=== PATIENT | male | born 1955 | race Caucasian/White ===

== ENCOUNTER 2017-02-03 13:28 | Emergency (ER) | payer MEDICARE, OTHER ==
[~2017-02-03] VITALS: Wt 68.0 kg
[~2017-02-03 13:28] MED LIST: ADVAIR 250/501 EA INH; ADVAIR HFA 115/1 AER INH; AMBIEN10 M1 PO; AMBIEN10 MG; AMBIEN10 MG PO; AMBIEN5 MG PO; AMOXICILLIN500 M2 PO; AMOXIL500 MG PO; ARGIMENT POWDE1 EACH PO; B-12500 MCG PO; BACLOFEN20 M1 PO; BACLOFEN20 MG PO; BACTRIM DS 8001 TA1 PO; BACTROBAN CREAM15 GM; CEFADROXIL MON500 MG PO; CEFEPIME1 GM IJ; CELEXA20 MG PO; CELEXA40 MG PO; CEPHULAC10 GM/151 PO; CIPRO500 MG PO; CIPROFLOXACIN500 MG PO; COMBIVENT RESPIM4 GM INH; COMBIVENT1 AR1 IH; COMBIVENT1 ARO IH; DULCOLAX5 MG PO; DUONEB 3 MG/3 ML3 M1 NEB; FLONASE 0.05% 121 EA NAS; FLONASE0.05 MG/AC NAS; FLONASE0.05 MG/AC NS; FLORASTOR250 MG PO; FLOVENT HFA10.6 GM IH; FLOVENT0.044 MG/A IH; FLOVENT0.044 MG/A INH; FLUDROCORTISON0.1 MG PO; FOLIC ACID1 MG PO; Flovent 220 M220 MCG; HIPREX1 GM PO; HYDROCODONE BIT1 T11 PO; INVANZ1 GM/50 ML IV; IPRATROPIUM BR2.5 ML IH; KEFZOL1 GM IV; KLONOPIN0.5 MG PO; LOMOCOT 0.025 M1 TAB PO; LOMOTIL 0.025 M1 TA1 PO; LORTAB; LORTAB PO; MACROBID100 M1 PO; MEROPENEM1 G1 IV; METHENAMINE HIPP1 G1 PO; MOM30 M1 PO; NITROSTAT0.15 MG SL; NORVASC10 MG; Nicotrol 10MG I1 BOX INH; ORAZINC 220220 MG PO; PLAVIX75 MG PO; PRAVACHOL40 MG PO; PROAIR HFA0.09 MG/AC IH; PROAIR HFA0.09 MG/AC INH; SANTYL250 U/GM TP; TYLENOL325 M1 PO; VANCOMYCIN IV; VENTOLIN0.09 MG/AC IH; VENTOLIN0.09 MG/AC INH; VICO75300 PO; VICODIN 5/500 505 MG PO; VICODIN ES 7501 TA1 PO; VITAMIN D2400 UNIT PO; XANAX0.25 MG PO; ZINC SULFATE220 MG PO; Zofran4 MG IV; [UNRECOGNIZED DRUG - OTHER] IH; [UNRECOGNIZED DRUG - OTHER] PO; [UNRECOGNIZED DRUG - OTHER] PO
[2017-02-03 13:47] VITALS: BP 102/64
[2017-02-03 13:54] LABS: BILIRUBIN NEGATIVE (NEGATIVE); CLARITY CLOUDY (CLEAR); COLOR YELLOW (YELLOW); GLUCOSE NEGATIVE (NEGATIVE); KETONE NEGATIVE (NEGATIVE)
[2017-02-03 13:55] LABS: BLOOD 3+ (NEGATIVE); LEUKO ESTERASE 2+ (NEGATIVE); NITRITE POSITIVE (NEGATIVE); PH 6.5 (5.0-9.0); PROTEIN 2+ (NEGATIVE); UROBILINOGEN 0.2 E.U./dl (0.2-1.0)
[2017-02-03 14:13] LABS: BASO % 0.3 % (0.0-1.0); EOS # 0.1 10*3/uL (0.0-0.4); HEMATOCRIT 43.1 % (42.0-52.0); HEMOGLOBIN 14.1 g/dl (14.0-18.0); LYMPH # 1.5 10*3/uL (1.3-4.4); LYMPH % 24.7 % (27.0-41.0); MEAN CELL VOLUME 91.3 fl (80.0-94.0); MEAN CORPUSCULAR HGB 29.9 pg (27.0-31.0); MEAN CORPUSCULAR HGB CONC 32.7 g/dl (33.0-37.0); MEAN PLATELET VOLUME 11.6 fl (9.6-12.3); MONO # 0.4 10*3/uL (0.1-1.0); MONO % 6.3 % (3.0-9.0); NEUT # 3.9 10*3/uL (2.3-7.9); NEUT % 66.5 % (47.0-73.0); PLATELET COUNT AUTOMATED 127 10*3/uL (130-400); RED BLOOD COUNT 4.72 10*6/uL (4.50-5.90); RED CELL DISTRI WIDTH 15.5 % (0-14.5); WHITE BLOOD COUNT 5.9 10*3/uL (4.8-10.8)
[2017-02-03 14:17] LABS: BACTERIA 4+; URINE REFLEX COMMENT YES (NO); WBC TNTC wbc/hpf (0-5)
[2017-02-03 14:18] LABS: MUCOUS TRACE
[2017-02-03 14:30] LABS: ALBUMIN 3.7 gm/dl (3.1-4.5); BUN 24 mg/dl (7-24); CARBON DIOXIDE 25 mmol/L (21-32); CHLORIDE 111 mmol/L (98-107); EST GLOM FILT AFRICAN AMERICAN > 60 ml/min; GLUCOSE 112 mg/dL (65-99); POTASSIUM 4.1 mmol/L (3.5-5.1); SGOT/AST 20 IU/L (3-35); SGPT/ALT 16 U/L (12-78); SODIUM 143 mmol/L (136-145)
[2017-02-03 14:31] LABS: ALKALINE PHOSPHATASE 88 U/L (45-117); BILIRUBIN, TOTAL 0.5 mg/dl (0.2-1.0); TOTAL PROTEIN 7.8 gm/dL (6.4-8.2)
[2017-02-03] MEDS ORDERED: BACTRIM DS 8001 TA1 PO (14:37)
== END 2017-02-03 15:17 | disposition home or self-care (01) ==
LOC: ED 13:28
PROVIDERS: Student in an Organized Health Care Education/Training Program
DX: N39.0 Urinary tract infection, site not specified (principal); R41.82 Altered mental status, unspecified; I10 Essential (primary) hypertension; E78.5 Hyperlipidemia, unspecified; J44.9 Chronic obstructive pulmonary disease, unspecified; F17.200 Nicotine dependence, unspecified, uncomplicated; Z79.899 Other long term (current) drug therapy; Z88.1 Allergy status to other antibiotic agents

== ENCOUNTER 2017-08-31 13:15 | Emergency (ER) | payer MEDICARE, OTHER ==
[~2017-08-31] VITALS: Wt 72.6 kg
[2017-08-31 13:29] VITALS: BP 122/73
[2017-08-31 14:07] LABS: BASO % 0.1 % (0.0-1.0); HEMATOCRIT 40.1 % (42.0-52.0); LYMPH % 11.3 % (27.0-41.0); MEAN CELL VOLUME 94.8 fl (80.0-94.0); MEAN CORPUSCULAR HGB 30.7 pg (27.0-31.0); MEAN CORPUSCULAR HGB CONC 32.4 g/dl (33.0-37.0); MEAN PLATELET VOLUME 11.5 fl (9.6-12.3); MONO # 0.4 10*3/uL (0.1-1.0); MONO % 4.5 % (3.0-9.0); NEUT # 7.4 10*3/uL (2.3-7.9); PLATELET COUNT AUTOMATED 158 10*3/uL (130-400); RED BLOOD COUNT 4.23 10*6/uL (4.50-5.90); RED CELL DISTRI WIDTH 14.7 % (0-14.5); WHITE BLOOD COUNT 8.9 10*3/uL (4.8-10.8)
[2017-08-31 14:25] LABS: ALBUMIN 3.5 gm/dl (3.1-4.5); BUN 19 mg/dl (7-24); CHLORIDE 104 mmol/L (98-107); CREATININE 0.74 mg/dL (0.70-1.30); POTASSIUM 4.6 mmol/L (3.5-5.1); SGOT/AST 10 IU/L (3-35); SGPT/ALT 19 U/L (12-78); SODIUM 138 mmol/L (136-145); TOTAL PROTEIN 7.7 gm/dL (6.4-8.2)
[2017-08-31 14:28] LABS: BILIRUBIN NEGATIVE (NEGATIVE); BLOOD TRACE-INTACT (NEGATIVE); CLARITY SL CLOUDY (CLEAR); COLOR YELLOW (YELLOW); GLUCOSE NEGATIVE (NEGATIVE); KETONE NEGATIVE (NEGATIVE); LEUKO ESTERASE 2+ (NEGATIVE); NITRITE POSITIVE (NEGATIVE); UROBILINOGEN 0.2 E.U./dl (0.2-1.0)
[2017-08-31 14:28] LABS: ALKALINE PHOSPHATASE 90 U/L (45-117)
[2017-08-31 14:33] LABS: ETHYL ALCOHOL < 3.0 mg/dl (<3); TROPONIN I < 0.015 ng/ml (<0.045)
[2017-08-31 14:41] LABS: WBC 51-100 wbc/hpf (0-5)
[2017-08-31 14:42] LABS: BACTERIA 1+
[2017-08-31 14:49] LABS: URINE AMPHETAMINES < 1000 (1000ng/ml); URINE BARBITURATES < 200 (200ng/ml); URINE BENZODIAZEPINES < 200 (200ng/ml); URINE CANNABINOIDS (THC) > 50 (50ng/ml); URINE COCAINE < 300 (300ng/ml); URINE METHADONE < 300 (300ng/ml)
[2017-08-31 14:50] LABS: URINE OPIATES < 300 (300ng/ml)
[2017-08-31 14:53] LABS: URINE PHENCYCLIDINE < 25 (25ng/ml)
[2017-08-31] MEDS ORDERED: AMINOPHYLLIN200 MG PO (15:14)
== END 2017-08-31 19:01 | disposition left against medical advice (07) ==
LOC: ED 13:15
PROVIDERS: Physician Assistant
DX: R55 Syncope and collapse (principal); F17.200 Nicotine dependence, unspecified, uncomplicated; Z88.1 Allergy status to other antibiotic agents; Z79.899 Other long term (current) drug therapy

== ENCOUNTER → 2017-10-08 | Outpatient (CLI) | payer MEDICARE, OTHER ==
[~2017-10-08] MED LIST changes: +AMINOPHYLLIN200 MG PO
[2017-10-08 15:11] LABS: BASO % 0.3 % (0.0-1.0); EOS # 0.1 10*3/uL (0.0-0.4); EOS % 1.9 % (1.0-4.0); HEMATOCRIT 37.9 % (42.0-52.0); LYMPH # 1.4 10*3/uL (1.3-4.4); MEAN CELL VOLUME 97.7 fl (80.0-94.0); MEAN CORPUSCULAR HGB 30.9 pg (27.0-31.0); MEAN CORPUSCULAR HGB CONC 31.7 g/dl (33.0-37.0); MONO # 0.5 10*3/uL (0.1-1.0); MONO % 9.1 % (3.0-9.0); NEUT # 3.8 10*3/uL (2.3-7.9); NEUT % 64.5 % (47.0-73.0); PLATELET COUNT AUTOMATED 151 10*3/uL (130-400); RED BLOOD COUNT 3.88 10*6/uL (4.50-5.90); RED CELL DISTRI WIDTH 15.7 % (0-14.5); WHITE BLOOD COUNT 5.8 10*3/uL (4.8-10.8)
[2017-10-08 15:29] LABS: ALBUMIN 3.3 gm/dl (3.1-4.5); ALKALINE PHOSPHATASE 88 U/L (45-117); BUN 32 mg/dl (7-24); CHLORIDE 105 mmol/L (98-107); CREATININE 0.91 mg/dL (0.70-1.30); POTASSIUM 4.9 mmol/L (3.5-5.1); SGOT/AST 14 IU/L (3-35); SGPT/ALT 19 U/L (12-78); SODIUM 138 mmol/L (136-145)
== END | disposition home or self-care (01) ==
LOC: LAB 14:26 → CT 15:00
PROVIDERS: Urology
DX: Z12.5 Encounter for screening for malignant neoplasm of prostate (principal); N26.1 Atrophy of kidney (terminal); N28.9 Disorder of kidney and ureter, unspecified; D40.0 Neoplasm of uncertain behavior of prostate; I10 Essential (primary) hypertension; I51.7 Cardiomegaly